=== PATIENT | male | born 1935 | race Caucasian/White ===

== ENCOUNTER → 2016-10-11 | Outpatient (CLI) | payer MEDICARE, OTHER ==
[~2016-10-11] MED LIST: ALLOPURINOL300 MG PO; ATENOLOL50 MG PO; BENICAR 20MG TA20 MG PO; HYDROCHLOR50 MG PO; TOPROL XL25 MG PO; TYLENOL 325MG325 M1 PO
== END ==
LOC: LAB 09:18
DX: R60.0 Localized edema (principal)

== ENCOUNTER → 2016-10-29 | Outpatient (CLI) | payer MEDICARE, OTHER | LOC: VAS 16:23 | DX: R60.0 Localized edema (principal); N18.3 Chronic kidney disease, stage 3 (moderate); I25.10 Atherosclerotic heart disease of native coronary artery without angina pectoris; E11.21 Type 2 diabetes mellitus with diabetic nephropathy; I35.1 Nonrheumatic aortic (valve) insufficiency; I34.0 Nonrheumatic mitral (valve) insufficiency; I07.1 Rheumatic tricuspid insufficiency ==

== ENCOUNTER → 2016-11-09 | Outpatient (CLI) | payer MEDICARE, OTHER ==
[2014-12-21 03:13] VITALS: BP 153/79
== END ==
LOC: LAB 11:44
DX: I10 Essential (primary) hypertension (principal); E11.9 Type 2 diabetes mellitus without complications

== ENCOUNTER → 2017-01-16 | Outpatient (CLI) | payer MEDICARE, OTHER ==
[2014-12-21 03:13] VITALS: BP 153/79
== END ==
LOC: LAB 12:25
DX: E11.9 Type 2 diabetes mellitus without complications (principal); I10 Essential (primary) hypertension

== ENCOUNTER 2017-01-24 13:00 | Outpatient (RCR) | payer MEDICARE, OTHER ==
[2014-12-21 03:13] VITALS: BP 153/79
== END 2017-02-07 15:00 | disposition home or self-care (01) ==
LOC: PT 13:00
DX: S46.092A Other injury of muscle(s) and tendon(s) of the rotator cuff of left shoulder, initial encounter (principal)

== ENCOUNTER → 2017-02-07 | Outpatient (CLI) | payer MEDICARE, OTHER ==
[2014-12-21 03:13] VITALS: BP 153/79
== END ==
LOC: LAB 09:57
DX: E11.9 Type 2 diabetes mellitus without complications (principal); Z00.00 Encounter for general adult medical examination without abnormal findings; N18.3 Chronic kidney disease, stage 3 (moderate); I10 Essential (primary) hypertension; D63.8 Anemia in other chronic diseases classified elsewhere; C67.9 Malignant neoplasm of bladder, unspecified; I25.10 Atherosclerotic heart disease of native coronary artery without angina pectoris; H40.9 Unspecified glaucoma; M25.569 Pain in unspecified knee; E78.2 Mixed hyperlipidemia

== ENCOUNTER → 2017-03-21 | Outpatient (CLI) | payer MEDICARE, OTHER ==
[2014-12-21 03:13] VITALS: BP 153/79
== END ==
LOC: LAB 08:20
DX: I10 Essential (primary) hypertension (principal); E11.9 Type 2 diabetes mellitus without complications; I25.10 Atherosclerotic heart disease of native coronary artery without angina pectoris; D64.89 Other specified anemias; R20.2 Paresthesia of skin

== ENCOUNTER → 2017-03-22 | Outpatient (CLI) | payer MEDICARE, OTHER ==
[2014-12-21 03:13] VITALS: BP 153/79
== END ==
LOC: CARDREHAB 07:35
DX: I25.10 Atherosclerotic heart disease of native coronary artery without angina pectoris (principal); R06.02 Shortness of breath; R07.9 Chest pain, unspecified
CPT/HCPCS: A9500

== ENCOUNTER 2017-04-24 10:25 | Emergency (ER) | payer MEDICARE, OTHER ==
[~2017-04-24 10:25] MED LIST changes: +TOPROL XL 50MG50 MG PO; -TOPROL XL25 MG PO
[2017-04-24] MEDS ORDERED: CLOPIDOGREL75 M1 PO (10:52)
[2017-04-24] MEDS ORDERED: CRESTOR40 MG PO (10:53)
[2017-04-24] MEDS ORDERED: ISOSORBIDE MONO60 M2 PO (10:53)
[2017-04-24] MEDS ORDERED: NITROSTAT0.4 M1 SL (10:54)
[2017-04-24] MEDS ORDERED: TRAMADOL 50 MG TAB PO (10:55)
[2017-04-24] MEDS ORDERED: LATANOPROST 2.2.5 ML OU (10:56)
[2017-04-24] MEDS ORDERED: COMBIGAN 0.2%-0.5 ML OP (10:56)
[2017-04-24 13:22] VITALS: BP 126/80
== END 2017-04-24 13:08 | disposition home or self-care (01) ==
LOC: ED 10:25
DX: N28.9 Disorder of kidney and ureter, unspecified (principal); Z91.14 Patient's other noncompliance with medication regimen; I25.10 Atherosclerotic heart disease of native coronary artery without angina pectoris; Z95.5 Presence of coronary angioplasty implant and graft; E11.40 Type 2 diabetes mellitus with diabetic neuropathy, unspecified; C67.9 Malignant neoplasm of bladder, unspecified; G47.33 Obstructive sleep apnea (adult) (pediatric); Z87.891 Personal history of nicotine dependence; Z79.02 Long term (current) use of antithrombotics/antiplatelets; R60.0 Localized edema; H40.9 Unspecified glaucoma; E66.9 Obesity, unspecified

== ENCOUNTER 2017-05-01 11:05 | Outpatient (RCR) | payer MEDICARE, OTHER ==
[~2017-05-01 11:05] MED LIST changes: +CLOPIDOGREL75 M1 PO; +COMBIGAN 0.2%-0.5 ML OP; +CRESTOR40 MG PO; +ISOSORBIDE MONO60 M2 PO; +LATANOPROST 2.2.5 ML OU; +NITROSTAT0.4 M1 SL; +TRAMADOL 50 MG TAB PO
== END 2017-07-30 | disposition home or self-care (01) ==
LOC: CARDREHAB
DX: Z48.812 Encounter for surgical aftercare following surgery on the circulatory system (principal); Z95.5 Presence of coronary angioplasty implant and graft

== ENCOUNTER → 2017-05-02 | Outpatient (CLI) | payer MEDICARE, OTHER ==
[2017-04-24 13:22] VITALS: BP 126/80
== END ==
LOC: LAB 16:46
DX: I25.10 Atherosclerotic heart disease of native coronary artery without angina pectoris (principal); N18.3 Chronic kidney disease, stage 3 (moderate)

== ENCOUNTER → 2017-05-23 | Outpatient (CLI) | payer MEDICARE, OTHER ==
[2017-04-24 13:22] VITALS: BP 126/80
[2017-05-23 16:48] LABS: BASO # 0.1 (0.02-0.10); EOS # 0.4 (0.04-0.40); HEMATOCRIT 34.5 % (42.0-52.0); HEMOGLOBIN 11.6 g/dL (13.5-18.0); MEAN CELL VOLUME 96 fl (78-100); MEAN CORPUSCULAR HEMOGLOBIN 32 pg (27-31); MEAN CORPUSCULAR HGB CONC 34 g/dL (33-37); MEAN PLATELET VOLUME 10.6 fl (7.4-10.4); MONO # 0.5 (0.20-0.80); NEU # 3.5 (1.40-6.50); PLATELET COUNT 127 K/mm3 (130-400); RED BLOOD COUNT 3.59 M/mm3 (4.20-5.60); RED CELL DISTRIBUTION WIDTH 13.7 % (11.5-14.5); WHITE BLOOD COUNT 5.5 K/mm3 (4.8-10.8)
[2017-05-23 16:51] LABS: EOS % 7.5 % (0.0-4.0)
[2017-05-23 16:58] LABS: ALBUMIN 3.9 g/dL (3.5-5.0); BUN/CREATININE RATIO 19.5 (6.0-26.0); CALCIUM 9.6 mg/dL (8.4-10.2); TOTAL BILIRUBIN 0.9 mg/dL (0.2-1.3); TOTAL PROTEIN 7.5 g/dL (6.3-8.2)
== END ==
LOC: LAB 16:12
PROVIDERS: Internal Medicine
DX: E11.22 Type 2 diabetes mellitus with diabetic chronic kidney disease (principal); E78.00 Pure hypercholesterolemia, unspecified; N18.3 Chronic kidney disease, stage 3 (moderate)

== ENCOUNTER → 2017-06-19 | Outpatient (CLI) | payer MEDICARE, OTHER ==
[2017-06-19 11:33] LABS: BUN/CREATININE RATIO 20.4 (6.0-26.0); CALCIUM 9.3 mg/dL (8.4-10.2); POTASSIUM 4.2 mmol/L (3.6-5.0)
== END ==
LOC: LAB 09:30
PROVIDERS: Internal Medicine
DX: I25.10 Atherosclerotic heart disease of native coronary artery without angina pectoris (principal); N18.3 Chronic kidney disease, stage 3 (moderate)

== ENCOUNTER → 2017-07-18 | Outpatient (CLI) | payer MEDICARE, OTHER ==
[2017-07-18 14:47] LABS: BASO # 0.1 (0.02-0.10); EOS # 0.4 (0.04-0.40); HEMATOCRIT 35.6 % (42.0-52.0); HEMOGLOBIN 11.9 g/dL (13.5-18.0); LYMPH# 1.1 (1.50-4.00); MEAN CELL VOLUME 97 fl (78-100); MEAN CORPUSCULAR HEMOGLOBIN 32 pg (27-31); MEAN CORPUSCULAR HGB CONC 33 g/dL (33-37); MEAN PLATELET VOLUME 11.4 fl (7.4-10.4); MONO # 0.5 (0.20-0.80); NEU # 4.3 (1.40-6.50); PLATELET COUNT 133 K/mm3 (130-400); RED BLOOD COUNT 3.69 M/mm3 (4.20-5.60); RED CELL DISTRIBUTION WIDTH 13.8 % (11.5-14.5); WHITE BLOOD COUNT 6.3 K/mm3 (4.8-10.8)
[2017-07-18 14:52] LABS: ALBUMIN 3.9 g/dL (3.5-5.0); BUN/CREATININE RATIO 19.2 (6.0-26.0); CALCIUM 9.5 mg/dL (8.4-10.2); POTASSIUM 4.6 mmol/L (3.6-5.0); TOTAL BILIRUBIN 1.1 mg/dL (0.2-1.3); TOTAL PROTEIN 7.1 g/dL (6.3-8.2)
[2017-07-18 14:54] LABS: EOS % 5.6 % (0.0-4.0)
== END ==
LOC: LAB 14:02
PROVIDERS: Internal Medicine
DX: E11.22 Type 2 diabetes mellitus with diabetic chronic kidney disease (principal); I10 Essential (primary) hypertension; I12.9 Hypertensive chronic kidney disease with stage 1 through stage 4 chronic kidney disease, or unspecified chronic kidney disease; N18.3 Chronic kidney disease, stage 3 (moderate); E11.42 Type 2 diabetes mellitus with diabetic polyneuropathy

== ENCOUNTER 2017-07-31 14:00 | Outpatient (RCR) | payer MEDICARE, OTHER | END 2017-10-29 | disposition home or self-care (01) | LOC: CARDREHAB | DX: Z48.812 Encounter for surgical aftercare following surgery on the circulatory system (principal); Z95.5 Presence of coronary angioplasty implant and graft ==

== ENCOUNTER → 2017-09-26 | Outpatient (CLI) | payer MEDICARE, OTHER ==
[2017-09-26 09:28] LABS: ALBUMIN 3.9 g/dL (3.5-5.0); BUN/CREATININE RATIO 16.9 (6.0-26.0); POTASSIUM 3.9 mmol/L (3.6-5.0); TOTAL BILIRUBIN 0.8 mg/dL (0.2-1.3); TOTAL PROTEIN 7.3 g/dL (6.3-8.2)
[2017-09-26 09:30] LABS: HEMATOCRIT 35.6 % (42.0-52.0); HEMOGLOBIN 11.6 g/dL (13.5-18.0); MEAN CELL VOLUME 97 fl (78-100); MEAN CORPUSCULAR HEMOGLOBIN 32 pg (27-31); MEAN CORPUSCULAR HGB CONC 33 g/dL (33-37); MEAN PLATELET VOLUME 10.8 fl (7.4-10.4); PLATELET COUNT 113 K/mm3 (130-400); RED BLOOD COUNT 3.67 M/mm3 (4.20-5.60); RED CELL DISTRIBUTION WIDTH 14.1 % (11.5-14.5); WHITE BLOOD COUNT 3.6 K/mm3 (4.8-10.8)
[2017-09-26 09:50] LABS: URINE APPEARANCE CLEAR; URINE BILIRUBIN NEGATIVE (NEGATIVE); URINE BLOOD 50 ery/uL (NEGATIVE); URINE COLOR YELLOW; URINE GLUCOSE NEGATIVE (NEGATIVE); URINE KETONE NEGATIVE (NEGATIVE); URINE LEUKOCYTE ESTERASE NEGATIVE (NEGATIVE); URINE MUCUS PRESENT (NOT PRESENT); URINE NITRATE NEGATIVE (NEGATIVE); URINE PROTEIN(semi-quant) 1+ mg/dL (NEGATIVE); URINE UROBILINOGEN NORMAL (NORMAL)
[2017-09-26 09:54] LABS: LYMPHOCYTE 14 % (20-51); NEUTROPHILS 64 % (42-75)
[2017-09-26 09:55] LABS: MONOCYTE 19 % (3-10)
== END ==
LOC: LAB 09:04
PROVIDERS: Nurse Practitioner Family
DX: R30.0 Dysuria (principal); R51 Headache; R32 Unspecified urinary incontinence; K59.00 Constipation, unspecified; Z88.1 Allergy status to other antibiotic agents

== ENCOUNTER → 2017-12-31 | Outpatient (CLI) | payer MEDICARE, OTHER ==
[2017-12-31 10:59] LABS: EOS # 0.2 (0.04-0.40); EOS % 4.1 % (0.0-4.0); HEMATOCRIT 34.3 % (42.0-52.0); HEMOGLOBIN 11.2 g/dL (13.5-18.0); LYMPH# 0.7 (1.50-4.00); MEAN CELL VOLUME 97 fl (78-100); MEAN CORPUSCULAR HEMOGLOBIN 32 pg (27-31); MEAN CORPUSCULAR HGB CONC 33 g/dL (33-37); MEAN PLATELET VOLUME 10.2 fl (7.4-10.4); MONO # 0.4 (0.20-0.80); NEU # 3.7 (1.40-6.50); PLATELET COUNT 158 K/mm3 (130-400); RED BLOOD COUNT 3.54 M/mm3 (4.20-5.60); RED CELL DISTRIBUTION WIDTH 14.3 % (11.5-14.5); WHITE BLOOD COUNT 5.1 K/mm3 (4.8-10.8)
[2017-12-31 11:11] LABS: BUN/CREATININE RATIO 19.4 (6.0-26.0); CALCIUM 8.8 mg/dL (8.4-10.2); POTASSIUM 3.9 mmol/L (3.6-5.0); TOTAL BILIRUBIN 0.6 mg/dL (0.2-1.3); TOTAL PROTEIN 7.4 g/dL (6.3-8.2)
== END ==
LOC: LAB 10:25 → RAD 13:00
PROVIDERS: Internal Medicine
DX: I65.23 Occlusion and stenosis of bilateral carotid arteries (principal); E78.00 Pure hypercholesterolemia, unspecified; E11.22 Type 2 diabetes mellitus with diabetic chronic kidney disease; N18.3 Chronic kidney disease, stage 3 (moderate)

== ENCOUNTER 2018-02-24 11:29 | Emergency (ER) | payer MEDICARE, OTHER ==
[~2018-02-24] VITALS: Wt 103.3 kg
[~2018-02-24 11:29] MED LIST changes: -BENICAR 20MG TA20 MG PO; +BENICAR20 MG PO
[2018-02-24] MEDS ORDERED: VESICARE5 MG PO (11:38)
[2018-02-24] MEDS ORDERED: TRIAMCINOLONE A15 GM TP (11:39)
[2018-02-24] MEDS ORDERED: BETAMETHASONE D1 CR2 TP (11:44)
[2018-02-24] MEDS ORDERED: ADULT ASPIRIN R81 MG PO (11:51)
[2018-02-24 12:13] LABS: EOS # 0.4 (0.04-0.40); HEMATOCRIT 31.9 % (42.0-52.0); HEMOGLOBIN 10.5 g/dL (13.5-18.0); LYMPH# 0.8 (1.50-4.00); MEAN CELL VOLUME 97 fl (78-100); MEAN CORPUSCULAR HEMOGLOBIN 32 pg (27-31); MEAN CORPUSCULAR HGB CONC 33 g/dL (33-37); MEAN PLATELET VOLUME 10.7 fl (7.4-10.4); MONO # 0.5 (0.20-0.80); NEU # 3.6 (1.40-6.50); PLATELET COUNT 113 K/mm3 (130-400); RED CELL DISTRIBUTION WIDTH 13.7 % (11.5-14.5); WHITE BLOOD COUNT 5.3 K/mm3 (4.8-10.8)
[2018-02-24 12:19] LABS: ALBUMIN 3.5 g/dL (3.5-5.0); BUN/CREATININE RATIO 21.7 (6.0-26.0); CALCIUM 8.4 mg/dL (8.4-10.2); TOTAL BILIRUBIN 1.4 mg/dL (0.2-1.3); TOTAL PROTEIN 6.8 g/dL (6.3-8.2)
[2018-02-24 12:26] LABS: EOS % 6.6 % (0.0-4.0)
[2018-02-24 12:27] LABS: TROPONIN-I 0.03 ng/mL (0.00-0.06)
[2018-02-24 12:36] LABS: URINE APPEARANCE CLEAR; URINE COLOR YELLOW
[2018-02-24 12:37] LABS: URINE BILIRUBIN NEGATIVE (NEGATIVE); URINE BLOOD NEGATIVE (NEGATIVE); URINE GLUCOSE NEGATIVE (NEGATIVE); URINE KETONE NEGATIVE (NEGATIVE); URINE LEUKOCYTE ESTERASE NEGATIVE (NEGATIVE); URINE MUCUS PRESENT (NOT PRESENT); URINE NITRATE NEGATIVE (NEGATIVE); URINE PROTEIN(semi-quant) 1+ mg/dL (NEGATIVE); URINE UROBILINOGEN NORMAL (NORMAL)
[2018-02-24] MEDS ORDERED: LASIX20 M1 PO (14:20)
[2018-02-24 14:51] VITALS: BP 129/75
== END 2018-02-24 14:48 | disposition home or self-care (01) ==
LOC: ED 11:29
PROVIDERS: Nurse Practitioner Primary Care
DX: R55 Syncope and collapse (principal); R00.1 Bradycardia, unspecified; R60.0 Localized edema; E11.22 Type 2 diabetes mellitus with diabetic chronic kidney disease; I13.0 Hypertensive heart and chronic kidney disease with heart failure and stage 1 through stage 4 chronic kidney disease, or unspecified chronic kidney disease; N18.3 Chronic kidney disease, stage 3 (moderate); I50.9 Heart failure, unspecified; Z79.02 Long term (current) use of antithrombotics/antiplatelets; Z79.899 Other long term (current) drug therapy; Z95.5 Presence of coronary angioplasty implant and graft; Z79.82 Long term (current) use of aspirin; Z85.51 Personal history of malignant neoplasm of bladder

== ENCOUNTER 2018-03-03 14:03 | Emergency (ER) | payer MEDICARE, OTHER ==
[~2018-03-03 14:03] MED LIST changes: +ADULT ASPIRIN R81 MG PO; +LASIX20 M1 PO; +LOTRISONE CREAM15 G1 TOP; +TRIAMCINOLONE A15 GM TP; +VESICARE5 MG PO
[2018-03-03 14:56] LABS: EOS # 0.1 (0.04-0.40); LYMPH# 0.9 (1.50-4.00); MEAN CELL VOLUME 96 fl (78-100); MEAN CORPUSCULAR HEMOGLOBIN 32 pg (27-31); MEAN CORPUSCULAR HGB CONC 33 g/dL (33-37); MEAN PLATELET VOLUME 10.4 fl (7.4-10.4); MONO # 0.6 (0.20-0.80); NEU # 5.6 (1.40-6.50); PLATELET COUNT 124 K/mm3 (130-400); RED BLOOD COUNT 2.31 M/mm3 (4.20-5.60); RED CELL DISTRIBUTION WIDTH 13.8 % (11.5-14.5); WHITE BLOOD COUNT 7.2 K/mm3 (4.8-10.8)
[2018-03-03 15:00] LABS: HEMATOCRIT 22.1 % (42.0-52.0); HEMOGLOBIN 7.3 g/dL (13.5-18.0)
[2018-03-03 15:04] LABS: ALBUMIN 3.4 g/dL (3.5-5.0); BUN/CREATININE RATIO 45.7 (6.0-26.0); CALCIUM 8.6 mg/dL (8.4-10.2); POTASSIUM 3.9 mmol/L (3.6-5.0); TOTAL BILIRUBIN 0.7 mg/dL (0.2-1.3)
[2018-03-03 17:46] LABS: URINE APPEARANCE CLEAR; URINE BILIRUBIN NEGATIVE (NEGATIVE); URINE BLOOD NEGATIVE (NEGATIVE); URINE COLOR YELLOW; URINE GLUCOSE NEGATIVE (NEGATIVE); URINE KETONE NEGATIVE (NEGATIVE); URINE LEUKOCYTE ESTERASE NEGATIVE (NEGATIVE); URINE NITRATE NEGATIVE (NEGATIVE); URINE PROTEIN(semi-quant) NEGATIVE (NEGATIVE); URINE UROBILINOGEN NORMAL (NORMAL); URINE WBC 0-1 /hpf (0-3)
[2018-03-03 17:50] VITALS: BP 132/69
== END 2018-03-03 19:07 | disposition short-term general hospital (02) ==
LOC: ED 14:03
PROVIDERS: Nurse Practitioner Primary Care
DX: K92.2 Gastrointestinal hemorrhage, unspecified (principal); I25.10 Atherosclerotic heart disease of native coronary artery without angina pectoris; E11.22 Type 2 diabetes mellitus with diabetic chronic kidney disease; I12.9 Hypertensive chronic kidney disease with stage 1 through stage 4 chronic kidney disease, or unspecified chronic kidney disease; N18.3 Chronic kidney disease, stage 3 (moderate); E78.5 Hyperlipidemia, unspecified; Z85.51 Personal history of malignant neoplasm of bladder; Z95.5 Presence of coronary angioplasty implant and graft; Z79.82 Long term (current) use of aspirin; Z79.02 Long term (current) use of antithrombotics/antiplatelets; R40.2412 Glasgow coma scale score 13-15, at arrival to emergency department; R41.0 Disorientation, unspecified; H40.9 Unspecified glaucoma
CPT/HCPCS: J7030; Q9967

== ENCOUNTER 2018-03-06 17:34 | Emergency (ER) | payer MEDICARE, OTHER ==
[~2018-03-06] VITALS: Ht 180.3 cm; Wt 97.7 kg
[2018-03-06 18:25] LABS: MEAN CELL VOLUME 95 fl (78-100); MEAN CORPUSCULAR HEMOGLOBIN 31 pg (27-31); MEAN CORPUSCULAR HGB CONC 32 g/dL (33-37); MEAN PLATELET VOLUME 10.6 fl (7.4-10.4); PLATELET COUNT 133 K/mm3 (130-400); RED CELL DISTRIBUTION WIDTH 15.8 % (11.5-14.5); WHITE BLOOD COUNT 6.3 K/mm3 (4.8-10.8)
[2018-03-06 18:29] LABS: HEMATOCRIT 21.9 % (42.0-52.0); HEMOGLOBIN 7.1 g/dL (13.5-18.0)
[2018-03-06 18:34] LABS: ALBUMIN 3.4 g/dL (3.5-5.0); BUN/CREATININE RATIO 25.9 (6.0-26.0); CALCIUM 8.9 mg/dL (8.4-10.2); POTASSIUM 3.6 mmol/L (3.6-5.0); TOTAL BILIRUBIN 1.2 mg/dL (0.2-1.3); TOTAL PROTEIN 5.9 g/dL (6.3-8.2)
[2018-03-06] MEDS ORDERED: ASPIRIN E.C. 8181 MG PO (18:53)
[2018-03-06] MEDS ORDERED: FLOMAX0.4 MG PO (19:06)
[2018-03-06 19:07] LABS: HYPOCHROMIA 1+; LYMPHOCYTE 10 % (20-51); MONOCYTE 7 % (3-10); NEUTROPHILS 79 % (42-75)
[2018-03-06 20:05] VITALS: BP 129/59
== END 2018-03-06 20:05 | disposition short-term general hospital (02) ==
LOC: ED 17:34
PROVIDERS: Nurse Practitioner Family
DX: K92.2 Gastrointestinal hemorrhage, unspecified (principal); I95.1 Orthostatic hypotension; N17.9 Acute kidney failure, unspecified; I21.4 Non-ST elevation (NSTEMI) myocardial infarction; D64.9 Anemia, unspecified; E11.22 Type 2 diabetes mellitus with diabetic chronic kidney disease; I12.9 Hypertensive chronic kidney disease with stage 1 through stage 4 chronic kidney disease, or unspecified chronic kidney disease; E11.40 Type 2 diabetes mellitus with diabetic neuropathy, unspecified; N18.3 Chronic kidney disease, stage 3 (moderate); G47.33 Obstructive sleep apnea (adult) (pediatric); I70.0 Atherosclerosis of aorta; E78.5 Hyperlipidemia, unspecified; I25.2 Old myocardial infarction; Z95.5 Presence of coronary angioplasty implant and graft; Z87.891 Personal history of nicotine dependence; H40.9 Unspecified glaucoma; Z79.899 Other long term (current) drug therapy; R40.2412 Glasgow coma scale score 13-15, at arrival to emergency department; R41.0 Disorientation, unspecified
CPT/HCPCS: C9113; J7030; J7050

== ENCOUNTER 2018-03-13 17:52 | Emergency (ER) | payer MEDICARE, OTHER ==
[~2018-03-13 17:52] MED LIST changes: +ASPIRIN E.C. 8181 MG PO; +FLOMAX0.4 MG PO
[2018-03-13 19:12] LABS: EOS # 0.3 (0.04-0.40); HEMATOCRIT 29.3 % (42.0-52.0); HEMOGLOBIN 9.6 g/dL (13.5-18.0); LYMPH# 0.8 (1.50-4.00); MEAN CELL VOLUME 94 fl (78-100); MEAN CORPUSCULAR HEMOGLOBIN 31 pg (27-31); MEAN CORPUSCULAR HGB CONC 33 g/dL (33-37); MEAN PLATELET VOLUME 10.3 fl (7.4-10.4); MONO # 0.6 (0.20-0.80); NEU # 3.8 (1.40-6.50); PLATELET COUNT 175 K/mm3 (130-400); RED BLOOD COUNT 3.12 M/mm3 (4.20-5.60); RED CELL DISTRIBUTION WIDTH 15.5 % (11.5-14.5); WHITE BLOOD COUNT 5.5 K/mm3 (4.8-10.8)
[2018-03-13 19:14] LABS: EOS % 6.2 % (0.0-4.0)
[2018-03-13 19:24] LABS: ALBUMIN 3.5 g/dL (3.5-5.0); BUN/CREATININE RATIO 19.8 (6.0-26.0); CALCIUM 8.7 mg/dL (8.4-10.2); POTASSIUM 3.5 mmol/L (3.6-5.0); TOTAL BILIRUBIN 1.1 mg/dL (0.2-1.3); TOTAL PROTEIN 6.5 g/dL (6.3-8.2)
[2018-03-13 19:31] LABS: URINE APPEARANCE CLEAR; URINE BILIRUBIN NEGATIVE (NEGATIVE); URINE BLOOD NEGATIVE (NEGATIVE); URINE COLOR YELLOW; URINE GLUCOSE NEGATIVE (NEGATIVE); URINE KETONE NEGATIVE (NEGATIVE); URINE LEUKOCYTE ESTERASE NEGATIVE (NEGATIVE); URINE NITRATE NEGATIVE (NEGATIVE); URINE PROTEIN(semi-quant) TRACE mg/dL (NEGATIVE); URINE UROBILINOGEN NORMAL (NORMAL); URINE WBC 0-1 /hpf (0-3)
[2018-03-13 20:03] VITALS: BP 137/65
== END 2018-03-13 20:03 | disposition home or self-care (01) ==
LOC: ED 17:52
PROVIDERS: Nurse Practitioner Family
DX: R51 Headache (principal); K12.0 Recurrent oral aphthae; I25.10 Atherosclerotic heart disease of native coronary artery without angina pectoris; I25.2 Old myocardial infarction; E11.22 Type 2 diabetes mellitus with diabetic chronic kidney disease; I12.9 Hypertensive chronic kidney disease with stage 1 through stage 4 chronic kidney disease, or unspecified chronic kidney disease; N18.9 Chronic kidney disease, unspecified; Z79.899 Other long term (current) drug therapy; Z79.82 Long term (current) use of aspirin; H40.9 Unspecified glaucoma; H53.8 Other visual disturbances; R41.0 Disorientation, unspecified; G47.33 Obstructive sleep apnea (adult) (pediatric); E11.40 Type 2 diabetes mellitus with diabetic neuropathy, unspecified; Z95.5 Presence of coronary angioplasty implant and graft; Z85.51 Personal history of malignant neoplasm of bladder

== ENCOUNTER → 2018-03-20 | Outpatient (CLI) | payer MEDICARE, OTHER ==
[2018-03-13 20:03] VITALS: BP 137/65
[2018-03-20 16:20] LABS: BASO # 0.1 (0.02-0.10); EOS # 0.3 (0.04-0.40); HEMATOCRIT 31.6 % (42.0-52.0); LYMPH# 0.9 (1.50-4.00); MEAN CELL VOLUME 95 fl (78-100); MEAN CORPUSCULAR HEMOGLOBIN 30 pg (27-31); MEAN CORPUSCULAR HGB CONC 32 g/dL (33-37); MEAN PLATELET VOLUME 10.2 fl (7.4-10.4); MONO # 0.4 (0.20-0.80); PLATELET COUNT 192 K/mm3 (130-400); RED BLOOD COUNT 3.32 M/mm3 (4.20-5.60); RED CELL DISTRIBUTION WIDTH 15.7 % (11.5-14.5); WHITE BLOOD COUNT 4.6 K/mm3 (4.8-10.8)
[2018-03-20 16:21] LABS: EOS % 6.3 % (0.0-4.0)
[2018-03-20 16:25] LABS: POTASSIUM 4.4 mmol/L (3.6-5.0)
[2018-03-20 16:52] LABS: ALBUMIN 3.9 g/dL (3.5-5.0); TOTAL BILIRUBIN 0.8 mg/dL (0.2-1.3)
[2018-03-20 18:16] LABS: ERYTHROCYTE SEDIMENTATION RATE 65 mm/hr (0-20)
== END ==
LOC: LAB 15:00
PROVIDERS: Internal Medicine
DX: E11.22 Type 2 diabetes mellitus with diabetic chronic kidney disease (principal); N18.3 Chronic kidney disease, stage 3 (moderate); K25.9 Gastric ulcer, unspecified as acute or chronic, without hemorrhage or perforation

== ENCOUNTER 2018-05-11 18:59 | Emergency (ER) | payer MEDICARE, OTHER ==
[~2018-05-11] VITALS: Ht 175.3 cm; Wt 78.6 kg
[~2018-05-11 18:59] MED LIST changes: -COMBIGAN 0.2%-0.5 ML OP; +COMBIGAN 0.2%-0.5 ML OS; +LATANOPROST 2.2.5 ML OD; -LATANOPROST 2.2.5 ML OU
[2018-05-11 19:45] VITALS: BP 98/61
== END 2018-05-11 20:30 | disposition home or self-care (01) ==
LOC: ED 18:59
DX: Z43.1 Encounter for attention to gastrostomy (principal); E11.9 Type 2 diabetes mellitus without complications; I10 Essential (primary) hypertension; G47.33 Obstructive sleep apnea (adult) (pediatric); C09.9 Malignant neoplasm of tonsil, unspecified; Z95.5 Presence of coronary angioplasty implant and graft; Z87.891 Personal history of nicotine dependence; Z79.899 Other long term (current) drug therapy; Z79.82 Long term (current) use of aspirin; Z85.51 Personal history of malignant neoplasm of bladder

== ENCOUNTER 2018-05-12 10:46 | Outpatient (RCR) | payer MEDICARE, OTHER ==
[2018-05-11 19:45] VITALS: BP 98/61
== END 2018-05-12 11:00 | disposition home or self-care (01) ==
LOC: SPEECH 10:46
DX: C09.8 Malignant neoplasm of overlapping sites of tonsil (principal); R13.12 Dysphagia, oropharyngeal phase; I10 Essential (primary) hypertension; Z92.3 Personal history of irradiation
CPT/HCPCS: G8997-GN

== ENCOUNTER 2018-05-29 17:56 | Emergency (ER) | payer MEDICARE, OTHER ==
[~2018-05-29] VITALS: Wt 80.8 kg
[2018-05-29] MEDS ORDERED: PROCHLORPERAZIN10 M2 (18:13)
[2018-05-29] MEDS ORDERED: METOPROLOL SUCC50 M1 PO (18:13)
[2018-05-29] MEDS ORDERED: ACETAMINOPHEN-H1 TA2 PO (18:13)
[2018-05-29] MEDS ORDERED: VESICARE5 MG PO (18:13)
[2018-05-29] MEDS ORDERED: CLOPIDOGREL75 M2 PEG (18:14)
[2018-05-29] MEDS ORDERED: ISOSORBIDE MONO60 M2 PO (18:14)
[2018-05-29 18:49] LABS: MEAN CELL VOLUME 94 fl (78-100); MEAN CORPUSCULAR HEMOGLOBIN 32 pg (27-31); MEAN CORPUSCULAR HGB CONC 34 g/dL (33-37); MEAN PLATELET VOLUME 10.3 fl (7.4-10.4); PLATELET COUNT 187 K/mm3 (130-400); RED CELL DISTRIBUTION WIDTH 15.2 % (11.5-14.5); WHITE BLOOD COUNT 14.2 K/mm3 (4.8-10.8)
[2018-05-29 18:52] LABS: HEMATOCRIT 19.8 % (42.0-52.0); HEMOGLOBIN 6.8 g/dL (13.5-18.0)
[2018-05-29 19:14] LABS: ALBUMIN 2.9 g/dL (3.5-5.0); ALT/SGPT 36 U/L (21-72); AST-SGOT 20 U/L (17-59); CALCIUM 8.7 mg/dL (8.4-10.2); CARBON DIOXIDE 27 mmol/L (22-30); GLUCOSE 273 mg/dL (75-110); POTASSIUM 4.6 mmol/L (3.6-5.0); SODIUM 134 mmol/L (137-145); TOTAL PROTEIN 5.3 g/dL (6.3-8.2)
[2018-05-29 19:37] LABS: TOTAL BILIRUBIN 0.5 mg/dL (0.2-1.3)
[2018-05-29 19:48] LABS: URINE APPEARANCE HAZY; URINE BILIRUBIN NEGATIVE (NEGATIVE); URINE BLOOD NEGATIVE (NEGATIVE); URINE COLOR YELLOW; URINE GLUCOSE NEGATIVE (NEGATIVE); URINE KETONE NEGATIVE (NEGATIVE); URINE LEUKOCYTE ESTERASE NEGATIVE (NEGATIVE); URINE NITRATE NEGATIVE (NEGATIVE); URINE PROTEIN(semi-quant) 1+ mg/dL (NEGATIVE); URINE UROBILINOGEN NORMAL (NORMAL)
[2018-05-29 19:59] LABS: LYMPHOCYTE 3 % (20-51); MONOCYTE 5 % (3-10); NEUTROPHILS 92 % (42-75)
[2018-05-29 20:00] LABS: HYPOCHROMIA 1+
[2018-05-29 21:20] VITALS: BP 99/51
== END 2018-05-29 21:20 | disposition short-term general hospital (02) ==
LOC: ED 17:56
PROVIDERS: Nurse Practitioner Family
DX: K92.2 Gastrointestinal hemorrhage, unspecified (principal); D64.9 Anemia, unspecified; C09.9 Malignant neoplasm of tonsil, unspecified; Z79.899 Other long term (current) drug therapy; Z92.3 Personal history of irradiation; Z87.891 Personal history of nicotine dependence; Z93.1 Gastrostomy status; I25.10 Atherosclerotic heart disease of native coronary artery without angina pectoris; I12.9 Hypertensive chronic kidney disease with stage 1 through stage 4 chronic kidney disease, or unspecified chronic kidney disease; N18.9 Chronic kidney disease, unspecified; Z95.5 Presence of coronary angioplasty implant and graft; E11.22 Type 2 diabetes mellitus with diabetic chronic kidney disease; G47.33 Obstructive sleep apnea (adult) (pediatric); F03.90 Unspecified dementia, unspecified severity, without behavioral disturbance, psychotic disturbance, mood disturbance, and anxiety; Z85.51 Personal history of malignant neoplasm of bladder; I25.2 Old myocardial infarction; E11.42 Type 2 diabetes mellitus with diabetic polyneuropathy; Z91.81 History of falling; H54.40 Blindness, one eye, unspecified eye
CPT/HCPCS: J7030

== ENCOUNTER → 2018-06-13 | Outpatient (CLI) | payer MEDICARE, OTHER ==
[2018-05-29 21:20] VITALS: BP 99/51
[~2018-06-13] MED LIST changes: +ACETAMINOPHEN-H1 TA2 PO; +CLOPIDOGREL75 M2 PEG; +METOPROLOL SUCC50 M1 PO; +PROCHLORPERAZIN10 M2
[2018-06-13 11:53] LABS: HEMATOCRIT 27.8 % (42.0-52.0); HEMOGLOBIN 8.9 g/dL (13.5-18.0); MEAN CELL VOLUME 98 fl (78-100); MEAN CORPUSCULAR HEMOGLOBIN 31 pg (27-31); MEAN CORPUSCULAR HGB CONC 32 g/dL (33-37); PLATELET COUNT 192 K/mm3 (130-400); RED BLOOD COUNT 2.85 M/mm3 (4.20-5.60); RED CELL DISTRIBUTION WIDTH 16.5 % (11.5-14.5)
[2018-06-13 12:05] LABS: ALBUMIN 3.2 g/dL (3.5-5.0); CALCIUM 8.5 mg/dL (8.4-10.2); POTASSIUM 3.8 mmol/L (3.6-5.0); TOTAL BILIRUBIN 0.5 mg/dL (0.2-1.3)
[2018-06-13 12:20] LABS: BAND 1 % (0-10)
[2018-06-13 12:21] LABS: HYPOCHROMIA 1+; LYMPHOCYTE 3 % (20-51); MICROCYTOSIS 1+; MONOCYTE 4 % (3-10); NEUTROPHILS 90 % (42-75); OVALOCYTES 1+
== END ==
LOC: LAB 10:44
PROVIDERS: Internal Medicine
DX: N18.3 Chronic kidney disease, stage 3 (moderate) (principal); I25.10 Atherosclerotic heart disease of native coronary artery without angina pectoris; K25.4 Chronic or unspecified gastric ulcer with hemorrhage

== ENCOUNTER → 2018-06-16 | Outpatient (CLI) | payer MEDICARE, OTHER ==
[2018-05-29 21:20] VITALS: BP 99/51
[2018-06-16 08:31] LABS: ALBUMIN 3.1 g/dL (3.5-5.0); CALCIUM 8.5 mg/dL (8.4-10.2); POTASSIUM 3.7 mmol/L (3.6-5.0); TOTAL BILIRUBIN 0.7 mg/dL (0.2-1.3); TOTAL PROTEIN 6.2 g/dL (6.3-8.2)
== END ==
LOC: LAB 07:26
PROVIDERS: Internal Medicine
DX: K92.2 Gastrointestinal hemorrhage, unspecified (principal)

== ENCOUNTER → 2018-06-20 | Outpatient (CLI) | payer MEDICARE, OTHER ==
[2018-05-29 21:20] VITALS: BP 99/51
[2018-06-20 16:00] LABS: HEMATOCRIT 26.7 % (42.0-52.0); HEMOGLOBIN 8.4 g/dL (13.5-18.0); MEAN CELL VOLUME 97 fl (78-100); MEAN CORPUSCULAR HEMOGLOBIN 30 pg (27-31); MEAN CORPUSCULAR HGB CONC 32 g/dL (33-37); MEAN PLATELET VOLUME 10.4 fl (7.4-10.4); PLATELET COUNT 247 K/mm3 (130-400); RED BLOOD COUNT 2.76 M/mm3 (4.20-5.60); WHITE BLOOD COUNT 9.1 K/mm3 (4.8-10.8)
[2018-06-20 16:08] LABS: ALBUMIN 3.2 g/dL (3.5-5.0); CALCIUM 8.5 mg/dL (8.4-10.2); POTASSIUM 3.9 mmol/L (3.6-5.0); TOTAL BILIRUBIN 0.6 mg/dL (0.2-1.3); TOTAL PROTEIN 6.3 g/dL (6.3-8.2)
[2018-06-20 17:43] LABS: LYMPHOCYTE 5 % (20-51); MONOCYTE 8 % (3-10); NEUTROPHILS 85 % (42-75)
== END ==
LOC: LAB 15:18
PROVIDERS: Internal Medicine
DX: N18.3 Chronic kidney disease, stage 3 (moderate) (principal); I25.10 Atherosclerotic heart disease of native coronary artery without angina pectoris; K25.0 Acute gastric ulcer with hemorrhage

== ENCOUNTER → 2018-07-01 | Outpatient (CLI) | payer MEDICARE, OTHER ==
[2018-07-01 12:01] LABS: HEMATOCRIT 26.5 % (42.0-52.0); HEMOGLOBIN 8.8 g/dL (13.5-18.0)
== END ==
LOC: LAB 11:34
PROVIDERS: Internal Medicine
DX: N18.3 Chronic kidney disease, stage 3 (moderate) (principal); D63.1 Anemia in chronic kidney disease; K25.4 Chronic or unspecified gastric ulcer with hemorrhage

== ENCOUNTER 2018-07-02 14:02 | Emergency (ER) | payer MEDICARE, OTHER ==
[~2018-07-02] VITALS: Wt 82.2 kg
[2018-07-02 14:25] LABS: HEMATOCRIT 26.2 % (42.0-52.0); HEMOGLOBIN 8.6 g/dL (13.5-18.0); MEAN CELL VOLUME 91 fl (78-100); MEAN CORPUSCULAR HEMOGLOBIN 30 pg (27-31); MEAN CORPUSCULAR HGB CONC 33 g/dL (33-37); MEAN PLATELET VOLUME 11.1 fl (7.4-10.4); PLATELET COUNT 249 K/mm3 (130-400); RED BLOOD COUNT 2.89 M/mm3 (4.20-5.60); RED CELL DISTRIBUTION WIDTH 14.9 % (11.5-14.5); WHITE BLOOD COUNT 15.3 K/mm3 (4.8-10.8)
[2018-07-02 14:37] LABS: BAND 5 % (0-10); LYMPHOCYTE 1 % (20-51); MONOCYTE 3 % (3-10); NEUTROPHILS 91 % (42-75)
[2018-07-02 14:39] LABS: ALBUMIN 2.7 g/dL (3.5-5.0); PARTIAL THROMBOPLASTIN TIME 25.7 SECONDS (21.0-32.0); POTASSIUM 3.9 mmol/L (3.6-5.0); PROTHROMBIN TIME 12.3 SECONDS (9.0-12.0); TOTAL BILIRUBIN 1.4 mg/dL (0.2-1.3); TOTAL PROTEIN 5.6 g/dL (6.3-8.2)
[2018-07-02 16:24] VITALS: BP 105/61
[2018-07-02 16:40] LABS: URINE APPEARANCE CLOUDY; URINE COLOR YELLOW
[2018-07-02 16:41] LABS: URINE BILIRUBIN NEGATIVE (NEGATIVE); URINE BLOOD TRACE (NEGATIVE); URINE KETONE NEGATIVE (NEGATIVE); URINE LEUKOCYTE ESTERASE TRACE (NEGATIVE); URINE NITRATE NEGATIVE (NEGATIVE); URINE PROTEIN(semi-quant) 1+ mg/dL (NEGATIVE); URINE UROBILINOGEN NORMAL (NORMAL)
[2018-07-02 16:42] LABS: URINE MUCUS PRESENT (NOT PRESENT)
== END 2018-07-02 16:16 | disposition short-term general hospital (02) ==
LOC: ED 14:02
PROVIDERS: Nurse Practitioner
DX: A41.9 Sepsis, unspecified organism (principal); J69.0 Pneumonitis due to inhalation of food and vomit; J93.9 Pneumothorax, unspecified; C09.9 Malignant neoplasm of tonsil, unspecified; Z87.891 Personal history of nicotine dependence; Z93.1 Gastrostomy status; F03.90 Unspecified dementia, unspecified severity, without behavioral disturbance, psychotic disturbance, mood disturbance, and anxiety; Z95.0 Presence of cardiac pacemaker; Z92.3 Personal history of irradiation; I25.2 Old myocardial infarction; I25.10 Atherosclerotic heart disease of native coronary artery without angina pectoris; Z95.5 Presence of coronary angioplasty implant and graft; E11.22 Type 2 diabetes mellitus with diabetic chronic kidney disease; I12.9 Hypertensive chronic kidney disease with stage 1 through stage 4 chronic kidney disease, or unspecified chronic kidney disease; N18.9 Chronic kidney disease, unspecified
CPT/HCPCS: J1956; J7030